=== PATIENT | female | born 1955 | race Caucasian/White ===

== ENCOUNTER 2023-02-18 18:58 | Emergency (ER) | payer MEDICARE, BC ==
[~2023-02-18] VITALS: Ht 175.3 cm; Wt 72.6 kg
[2023-02-18 21:15] VITALS: BP 117/73
[2023-02-18] MEDS ORDERED: Roxicodone5 MG PO (22:06)
== END 2023-02-18 22:26 | disposition home or self-care (01) ==
LOC: ER 18:58
DX: S82.852A Displaced trimalleolar fracture of left lower leg, initial encounter for closed fracture (principal); W01.0XXA Fall on same level from slipping, tripping and stumbling without subsequent striking against object, initial encounter; Y93.01 Activity, walking, marching and hiking; Y92.64 Mine or pit as the place of occurrence of the external cause; Z88.0 Allergy status to penicillin; Z88.2 Allergy status to sulfonamides; Z88.6 Allergy status to analgesic agent
CPT/HCPCS: 27818; 73600; 73610; 96374-59; 96376-59; 99283-25; A9270; J3010